=== PATIENT | male | born 1970 | race Two or more races ===

== ENCOUNTER 2017-06-02 12:22 | Emergency (ER) | payer SELFPAY ==
[~2017-06-02] VITALS: Ht 165.1 cm; Wt 65.8 kg
--- NOTE | 2017-06-02 12:29 | NUR ---
Trey sherwood in ED - 06/02/17 at 1229 by PHILIP PT TO CT VIA WINTER IN STABLE CONDITION
--- NOTE | 2017-06-02 12:32 | NUR ---
PT TO ED ROOM 15. BIB RA, found slumped over on sidewalk with ETOH noted on breath. SIDE RAISL UP. HOB ELEVATED. CONNECTED TO MONITOR. SEEN AND EVALUATED BY ED PROVIDER.
[2017-06-02 12:46] LABS: BASOPHILS % (AUTO) 0.4 % (0.0-2.0); EOSINOPHILS % (AUTO) 0.9 % (0.0-6.0); HEMATOCRIT 44 % (39-51); HEMOGLOBIN 14.8 g/dL (13.5-17.5); LYMPHOCYTES # (AUTO) 2.6 /CMM (0.8-4.8); LYMPHOCYTES % (AUTO) 35.8 % (20.0-44.0); MEAN CORPUSCULAR HGB CONC 34 g/dl (31.0-36.0); MEAN CORPUSCULAR VOLUME 83 fL (80-96); MONOCYTES # (AUTO) 0.4 /CMM (0.1-1.30); MONOCYTES % (AUTO) 5.4 % (2.0-12.0); NEUTROPHILS # (AUTO) 4.2 /CMM (1.8-8.9); NEUTROPHILS % (AUTO) 57.5 % (43.0-81.0); PLATELET COUNT (AUTO) 319 /CMM (150-450); RDW COEFFICIENT OF VARIATION 11.4 (11.5-15.0); RED BLOOD CELL COUNT(AUTO) 5.23 MIL/uL (4.5-6.0); WHITE BLOOD COUNT (AUTO) 7.3 K/uL (4.3-11.0)
[2017-06-02 12:54] LABS: CALCIUM, SERUM 8.3 mg/dL (8.5-10.1); CREATININE 1.2 mg/dL (0.6-1.3); POTASSIUM 3.6 mmol/L (3.5-5.1)
[2017-06-02 13:01] LABS: ALBUMIN 3.8 g/dL (3.4-5.0); BILIRUBIN,DIRECT 0.1 mg/dL (0.0-0.2); BILIRUBIN,TOTAL 0.5 mg/dL (0.2-1.0); TOTAL PROTEIN, SERUM 7.6 g/dL (6.4-8.2)
[2017-06-02 13:02] LABS: SALICYLATE 0.6 mg/dL (2.8-20.0)
--- NOTE | 2017-06-02 13:28 | NUR ---
PT IS UNABLE TO PROVIDE WITH URINE SAMPLE AT THIS TIME. WILL TRY AGAIN LATER.
--- NOTE | 2017-06-02 15:30 | NUR ---
Patient is resting comfortably in bed with eyes closed. Easily aroused. VSS
--- NOTE | 2017-06-02 16:45 | NUR ---
Patient is resting comfortably in bed with eyes closed. Easily aroused. VSS
--- NOTE | 2017-06-02 18:30 | NUR ---
FAMILY AT BEDSIDE.
--- NOTE | 2017-06-02 18:40 | NUR ---
PER PATIENT, HIS IS COMING IS COMING TO TAKE PATIENT HOME. ETA ~ 20 MIN.
--- NOTE | 2017-06-02 19:04 | NUR ---
REPORT RECEIVED FROM GUSTAVO DU FOR YISEL.
--- NOTE | 2017-06-02 19:22 | NUR ---
IV removed. Catheter intact and site benign. Pressure and 4x4 applied to site. No bleeding noted. Patient is awake and alert to self, day, and place. Patient discharged with friend to home in stable condition. Written and verbal after care instructions given, instructed not to drive. Patient verbalizes understanding of instruction. Patient ambulatory with a steady gait.
[2017-06-02 19:24] VITALS: BP 129/69
== END 2017-06-02 19:24 | disposition home or self-care (01) ==
LOC: ER 12:23
DX: F10.129 Alcohol abuse with intoxication, unspecified (principal)
CPT/HCPCS: 36415; 70450-TC; 80048-TC; 80076-TC; 85025-TC; A4606; A6253; G0480; Z7610